=== PATIENT | female | born 1990 ===

== ENCOUNTER 2017-07-18 22:58 | Inpatient (IN) | payer SELFPAY ==
[2017-07-18] MEDS ORDERED: Nalbuphine 20 MG/1 ML Amp IVPUSH PRN (23:10)
[2017-07-18] MEDS ORDERED: Ondansetron 4 MG/2 ML SDV IVPUSH PRN (23:10)
[2017-07-18] MEDS ORDERED: Sodium Chloride 0.9% 10 ML Syringe FLUSH PRN (23:10)
[2017-07-18] MEDS ORDERED: Oxytocin/Lactated Ringers 10 UNIT/1,000 ML BAG IV ONE (23:12)
[2017-07-18] MEDS ORDERED: Lactated Ringers 1,000 ML IV SCH (23:15)
[2017-07-18] MEDS ORDERED: Lidocaine 1% 50 ML MDV INJECT SCH (23:15)
[2017-07-18] MEDS ORDERED: Oxytocin/Lactated Ringers 10 UNIT/1,000 ML BAG IV SCH (23:15)
--- NOTE | 2017-07-18 23:55 | PCM.LDHP ---
L&D History of Present Illness - General Date of Service: 07/18/17 Admit Problem/Dx: Patient Status Order with Admit Dx/Problem 07/18/17 23:10 Patient Status [ADT] Routine Admission Diagnosis/Problem Admission Diagnosis/Problem Source of Information: Patient History Limitations: Reports: No Limitations - History of Present Illness Introduction:: 27-year-old 001 CHRIS 07/08/17 or anyone 3 days estimated gestational age presented to labor and delivery at 7 cm dilated bulging bag of mata. B strep negative. The type O positive, antibody screen negative, hemoglobin hematocrit 11.8 and 35.3 on 02/11/17 platelets 188,000 negative Pap test immune rubella titer nonreactive serology mixed chuyita urine culture hepatitis B surface antigen and HIV were negative. TSH within normal limits diabetes OB glucose screen 04/10/17/06/09 on 04/10/17 hemoglobin hematocrit 10.8 and 32.5 platelets 167,000 repeat hemoglobin hematocrit on 06/05/1811.2/36.6 platelets 166,000 group B strep negative. Timing/Duration: Reports: minutes: Location, : Reports: Abdomen, Lower back Quality: Reports: Ache, Burning, Dull, Pressure Improves with: Reports: None Worsens with: Reports: None Associated Symptoms: Reports: N - Related Data Allergies/Adverse Reactions: Allergies Allergy/AdvReac Type Severity Reaction Status Date / Time No Known Allergies Allergy Verified 07/18/17 23:09 Past Medical History : 2 Para: 1 (1001) H&P Review of Systems - Review of Systems: Review Of Systems: See Below General: Reports: No Symptoms HEENT: Reports: No Symptoms Pulmonary: Reports: No Symptoms Cardiovascular: Reports: No Symptoms Gastrointestinal: Reports: No Symptoms Genitourinary: Reports: No Symptoms Musculoskeletal: Reports: No Symptoms Skin: Reports: No Symptoms Psychiatric: Reports: No Symptoms Neurological: Reports: No Symptoms Hematologic/Lymphatic: Reports: No Symptoms Immunologic: Reports: No Symptoms L&D Exam - Exam Exam: See Below - OB Specific Fundal Height In cm: 39 Contraction Duration (sec): 2 Contraction Frequency (min): 60 Contraction Intensity: Moderate to Strong Movement: Active Heart Tones: Present Heart Tones per Min: 130 Heart Rate (FHR) Variability: Moderate (6-25 bmp) Presentation: Right Occiput Anterior (PEREZ) - Fuentes Score Fuentes Score Cervix Position: Anterior Fuentes Score Consistency: Soft Fuentes Score Effacement: >80% Fuentes Score Dilation: > 5 cm Fuentes Score 's Station: -2 Fuentes Score Total: 11 - Exam General: Alert, Oriented HEENT: Conjunctiva Clear, Mucosa Moist & Harvey, PERRLA Neck: Supple, Trachea Midline Lungs: Clear to Auscultation, Normal Respiratory Effort Cardiovascular: Regular Rate, Regular Rhythm GI/Abdominal Exam: Normal Bowel Sounds, Soft, Non-Tender, No Distention Genitourinary: Normal external exam, Normal bimanual exam, Normal speculum exam Extremities: Normal Inspection, Normal Range of Motion, Non-Tender, No Pedal Edema, Normal Capillary Refill Skin: Warm, Dry, Intact Neurological: Cranial Nerves Intact, Reflexes Equal Bilateral Psychiatric: Alert, Normal Affect, Normal Mood - Patient Data Lab Results Last 24 hrs: Laboratory Results - last 24 hr 07/18/17 Range/Units 23:24 WBC 9.02 (3.98-10.04) K/mm3 RBC 4.59 (3.98-5.22) M/mm3 Hgb 13.6 (11.2-15.7) gm/L Hct 39.8 (34.1-44.9) % MCV 86.7 (79.4-94.8) fl MCH 29.6 (25.6-32.2) pg MCHC 34.2 (32.2-35.5) g/dl RDW Std Deviation 41.1 (36.4-46.3) fL Plt Count 170 L (182-369) K/mm3 MPV 10.0 (9.4-12.3) fl Neut % (Auto) 69.7 (34.0-71.1) % Lymph % (Auto) 20.8 (19.3-51.7) % [place] % (Auto) 9.1 (4.7-12.5) % Eos % (Auto) 0.1 L (0.7-5.8) Baso % (Auto) 0.1 (0.1-1.2) % Neut # (Auto) 6.28 H (1.56-6.13) K/mm3 Lymph # (Auto) 1.88 (1.18-3.74) K/mm3 [place] # (Auto) 0.82 H (0.24-0.36) K/mm3 Eos # (Auto) 0.01 L (0.04-0.36) K/mm3 Baso # (Auto) 0.01 (0.01-0.08) K/mm3 Result Diagrams: 07/18/17 23:24 - Problem List (1) 41 weeks gestation of SNOMED Code(s): 47644453 ICD Code: Z3A.41 - 41 WEEKS GESTATION OF Status: Acute Current Visit: Yes Problem List Initiated/Reviewed/Updated: No Orders Last 24hrs: Active Orders 24 hr Category Date Time Status Patient Status [ADT] Routine ADT 07/18/17 23:10 Active Activity as Tolerated [RC] PFP Care 07/18/17 23:10 Active Communication Order [RC] ASDIRECTED Care 07/18/17 23:10 Active Heart Tones [RC] ASDIRECTED Care 07/18/17 23:10 Active Notify Provider [RC] PFP Care 07/18/17 23:10 Active Notify Provider [RC] PRN Care 07/18/17 23:10 Active Peripheral IV Care [RC] . DIRECTED Care 07/18/17 23:10 Active Vital Signs [RC] PER UNIT ROUTINE Care 07/18/17 23:10 Active Lactated Ringers [Ringers, Lactated] 1,000 ml Med 07/18/17 23:15 Active IV ASDIRECTED Lidocaine 1% [Xylocaine 1%] Med 07/18/17 23:15 Active 50 ml INJECT .ONETIME Nalbuphine [Nubain] Med 07/18/17 23:10 Active 10 mg IVPUSH Q2H PRN Ondansetron [Zofran] Med 07/18/17 23:10 Active 4 mg IVPUSH Q4H PRN Oxytocin/Lactated Ringers [Pitocin in LR 10 Units/1,000 Med 07/18/17 23:15 Active ML] 10 unit in 1,000 ml IV .CONTINUOUS Sodium Chloride 0.9% [Saline Flush] Med 07/18/17 23:10 Active 10 ml FLUSH ASDIRECTED PRN Electronic Heart Tones Ext w TOCO [WOMSER] Oth 07/18/17 23:10 Ordered Routine Electronic Heart Tones Internal [WOMSER] Per Unit Oth 07/18/17 23:10 Ordered Routine Peripheral IV Insertion Adult [OM.PC] Routine Oth 07/18/17 23:10 Ordered Resuscitation Status Routine Resus Stat 07/18/17 23:10 Ordered Medication Orders Lactated Ringer's (Ringers, Lactated) 1,000 mls @ 100 mls/hr IV ASDIRECTED EYAD Oxytocin/Lactated Ringer's (Pitocin In Lr 10 Units/1,000 Ml) 10 unit in 1,000 mls @ 500 mls/hr IV .CONTINUOUS EYAD Lidocaine HCl (Xylocaine 1%) 50 ml INJECT .ONETIME EYAD Nalbuphine HCl (Nubain) 10 mg IVPUSH Q2H PRN PRN Reason: Pain (moderate 4-6) Ondansetron HCl (Zofran) 4 mg IVPUSH Q4H PRN PRN Reason: Nausea/Vomiting Sodium Chloride (Saline Flush) 10 ml FLUSH ASDIRECTED PRN PRN Reason: Keep Vein Open Assessment/Plan Comment:: Land delivery.
--- NOTE | 2017-07-19 00:15 | PCM.DEL ---
L & D Note - General Info Date of Service: 07/18/17 Mother's Due Date: 07/08/17 - Delivery Note Labor: Spontaneous Delivery Outcome: Livebirth (female liveborn OA, shoulder cord left, delivery at 2333 hours 07/18/17 APGARS 8/9) Delivery Method: Spontaneous Vaginal Delivery-Single Delivery Mode: Spontaneous Presentation: Right Occiput Anterior (PEREZ) Nuchal Cord: None (left shoulder cord) Prep: Povidone-Iodine (Betadine Anesthesia Type: Local Amniotic Fluid Description: Clear Episiotomy Type: None Laceration: 1st Degree (Midline) Suture type: Other (Monocryl) Suture size: 3-0 Placenta: Intact, Manual Removal (Velamentous insertion of the cord, cord tore away from placenta requiring manual removal of placenta. Placenta inspected intact.) Cord: 3 Vessels Estimated Blood Loss: 250 Resuscitation Needed: No Farner: Suctioned, Stimulated, Warmed, [place] Used, Warmer Used Provider: Jd Post Score 1 min: 8 Score 5 min: 9 - Patient Data Lab Results Last 24 Hours: Laboratory Results - last 24 hr 07/18/17 Range/Units 23:24 WBC 9.02 (3.98-10.04) K/mm3 RBC 4.59 (3.98-5.22) M/mm3 Hgb 13.6 (11.2-15.7) gm/L Hct 39.8 (34.1-44.9) % MCV 86.7 (79.4-94.8) fl MCH 29.6 (25.6-32.2) pg MCHC 34.2 (32.2-35.5) g/dl RDW Std Deviation 41.1 (36.4-46.3) fL Plt Count 170 L (182-369) K/mm3 MPV 10.0 (9.4-12.3) fl Neut % (Auto) 69.7 (34.0-71.1) % Lymph % (Auto) 20.8 (19.3-51.7) % [place] % (Auto) 9.1 (4.7-12.5) % Eos % (Auto) 0.1 L (0.7-5.8) Baso % (Auto) 0.1 (0.1-1.2) % Neut # (Auto) 6.28 H (1.56-6.13) K/mm3 Lymph # (Auto) 1.88 (1.18-3.74) K/mm3 [place] # (Auto) 0.82 H (0.24-0.36) K/mm3 Eos # (Auto) 0.01 L (0.04-0.36) K/mm3 Baso # (Auto) 0.01 (0.01-0.08) K/mm3 Med Orders - Current: Current Medications Lactated Ringer's (Ringers, Lactated) 1,000 mls @ 100 mls/hr IV ASDIRECTED EYAD Oxytocin/Lactated Ringer's (Pitocin In Lr 10 Units/1,000 Ml) 10 unit in 1,000 mls @ 500 mls/hr IV .CONTINUOUS EYAD Lidocaine HCl (Xylocaine 1%) 50 ml INJECT .ONETIME EYAD Nalbuphine HCl (Nubain) 10 mg IVPUSH Q2H PRN PRN Reason: Pain (moderate 4-6) Ondansetron HCl (Zofran) 4 mg IVPUSH Q4H PRN PRN Reason: Nausea/Vomiting Sodium Chloride (Saline Flush) 10 ml FLUSH ASDIRECTED PRN PRN Reason: Keep Vein Open Discontinued Medications Oxytocin/Lactated Ringer's (Pitocin In Lr 10 Units/1,000 Ml) Confirm Administered Dose 10 unit in 1,000 mls @ as directed IV .STK-MED ONE Stop: 07/18/17 23:13 - Problem List & Annotations (1) 41 weeks gestation of SNOMED Code(s): 99821581 Code(s): Z3A.41 - 41 WEEKS GESTATION OF Status: Acute Current Visit: Yes (2) Velamentous insertion of umbilical cord SNOMED Code(s): 22819755 Code(s): O43.129 - VELAMENTOUS INSERTION OF UMBILICAL CORD, UNSP TRIMESTER Status: Acute Current Visit: Yes (3) First degree perineal laceration during delivery SNOMED Code(s): 007972750 Code(s): O70.0 - FIRST DEGREE PERINEAL LACERATION DURING DELIVERY Status: Acute Current Visit: Yes (4) Precipitous delivery SNOMED Code(s): 615552759 Code(s): O62.3 - PRECIPITATE LABOR Status: Acute Current Visit: Yes - Problem List Review Problem List Initiated/Reviewed/Updated: No - My Orders Last 24 Hours: My Active Orders 07/18/17 23:10 Patient Status [ADT] Routine Activity as Tolerated [RC] PFP Communication Order [RC] ASDIRECTED Heart Tones [RC] ASDIRECTED Notify Provider [RC] PFP Notify Provider [RC] PRN Peripheral IV Care [RC] . DIRECTED Vital Signs [RC] PER UNIT ROUTINE Nalbuphine [Nubain] 10 mg IVPUSH Q2H PRN Ondansetron [Zofran] 4 mg IVPUSH Q4H PRN Sodium Chloride 0.9% [Saline Flush] 10 ml FLUSH ASDIRECTED PRN Electronic Heart Tones Ext w TOCO [WOMSER] Routine Electronic Heart Tones Internal [WOMSER] Per Unit Routine Peripheral IV Insertion Adult [OM.PC] Routine Resuscitation Status Routine 07/18/17 23:15 Lactated Ringers [Ringers, Lactated] 1,000 ml IV ASDIRECTED Lidocaine 1% [Xylocaine 1%] 50 ml INJECT .ONETIME Oxytocin/Lactated Ringers [Pitocin in LR 10 Units/1,000 ML] 10 unit in 1,000 ml IV .CONTINUOUS 07/18/17 23:55 Patient Status Manage Transfer [TRANSFER] Routine - Plan Plan:: Land delivery.
[2017-07-19] MEDS ORDERED: Acetaminophen 325 MG Tab PO PRN (00:41)
[2017-07-19] MEDS ORDERED: Benzocaine/Menthol 20%-0.5% Spray 56 GM Canister TOP PRN (00:41)
[2017-07-19] MEDS ORDERED: Lanolin 100% Cream 7 GM Tube TOP PRN (00:41)
[2017-07-19] MEDS ORDERED: Docusate Sodium 100 MG Cap PO PRN (00:41)
[2017-07-19] MEDS ORDERED: Witch Hazel Medicated Pads 100/Jar TOP PRN (00:41)
[2017-07-19] MEDS: Ibuprofen 600 MG Tab PO PRN ×2 (10:05→15:47)
--- NOTE | 2017-07-23 16:19 | PCM.DCSUM1 ---
Discharge Summary - Hospital Course Free Text/Narrative:: Dismissed at 24 hrs after delivery. [facility] LIVE L/D Delivery Note Patient Name: TONJA HURTADO Date of : 89 Patient Status: Inpatient Attending Provider: Jd Post Date: 07/19/17 00:04 Initialization Date: 07/19/17 00:04 L & D Note - General Info Date of Service: 07/18/17 Mother's Due Date: 07/08/17 - Delivery Note Labor: Spontaneous Delivery Outcome: Livebirth (female liveborn OA, shoulder cord left, delivery at 2333 hours 07/18/17 APGARS 8/9) Infant Delivery Method: Spontaneous Vaginal Delivery-Single Delivery Mode: Spontaneous Presentation: Right Occiput Anterior (PEREZ) Nuchal Cord: None (left shoulder cord) Prep: Povidone-Iodine (Betadine Anesthesia Type: Local Amniotic Fluid Description: Clear Episiotomy Type: None Laceration: 1st Degree (Midline) Suture type: Other (Monocryl) Suture size: 3-0 Placenta: Intact, Manual Removal (Velamentous insertion of the cord, cord tore away from placenta requiring manual removal of placenta. Placenta inspected intact.) Cord: 3 Vessels Estimated Blood Loss: 250 Resuscitation Needed: No : Suctioned, Stimulated, Warmed, Clothier Used, Warmer Used Provider: Jd Post Score 1 min: 8 Score 5 min: 9 - Patient Data Lab Results Last 24 Hours: Laboratory Results - last 24 hr 07/18/17 Range/Units 23:24 WBC 9.02 (3.98-10.04) K/mm3 RBC 4.59 (3.98-5.22) M/mm3 Hgb 13.6 (11.2-15.7) gm/L Hct 39.8 (34.1-44.9) % MCV 86.7 (79.4-94.8) fl MCH 29.6 (25.6-32.2) pg MCHC 34.2 (32.2-35.5) g/dl RDW Std Deviation 41.1 (36.4-46.3) fL Plt Count 170 L (182-369) K/mm3 MPV 10.0 (9.4-12.3) fl Neut % (Auto) 69.7 (34.0-71.1) % Lymph % (Auto) 20.8 (19.3-51.7) % [place] % (Auto) 9.1 (4.7-12.5) % Eos % (Auto) 0.1 L (0.7-5.8) Baso % (Auto) 0.1 (0.1-1.2) % Neut # (Auto) 6.28 H (1.56-6.13) K/mm3 Lymph # (Auto) 1.88 (1.18-3.74) K/mm3 [place] # (Auto) 0.82 H (0.24-0.36) K/mm3 Eos # (Auto) 0.01 L (0.04-0.36) K/mm3 Baso # (Auto) 0.01 (0.01-0.08) K/mm3 Med Orders - Current: Current Medications Lactated Ringer's (Ringers, Lactated) 1,000 mls @ 100 mls/hr IV ASDIRECTED EYAD Oxytocin/Lactated Ringer's (Pitocin In Lr 10 Units/1,000 Ml) 10 unit in 1,000 mls @ 500 mls/hr IV .CONTINUOUS EYAD Lidocaine HCl (Xylocaine 1%) 50 ml INJECT .ONETIME EAYD Nalbuphine HCl (Nubain) 10 mg IVPUSH Q2H PRN PRN Reason: Pain (moderate 4-6) Ondansetron HCl (Zofran) 4 mg IVPUSH Q4H PRN PRN Reason: Nausea/Vomiting Sodium Chloride (Saline Flush) 10 ml FLUSH ASDIRECTED PRN PRN Reason: Keep Vein Open Discontinued Medications Oxytocin/Lactated Ringer's (Pitocin In Lr 10 Units/1,000 Ml) Confirm Administered Dose 10 unit in 1,000 mls @ as directed IV .STK-MED ONE Stop: 07/18/17 23:13 - Problem List & Annotations (1) 41 weeks gestation of SNOMED Code(s): 27019808 Code(s): Z3A.41 - 41 WEEKS GESTATION OF Status: Acute Current Visit: Yes (2) Velamentous insertion of umbilical cord SNOMED Code(s): 67625611 Code(s): O43.129 - VELAMENTOUS INSERTION OF UMBILICAL CORD, UNSP TRIMESTER Status: Acute Current Visit: Yes (3) First degree perineal laceration during delivery SNOMED Code(s): 071730652 Code(s): O70.0 - FIRST DEGREE PERINEAL LACERATION DURING DELIVERY Status: Acute Current Visit: Yes (4) Precipitous delivery SNOMED Code(s): 273800827 Code(s): O62.3 - PRECIPITATE LABOR Status: Acute Current Visit: Yes - Problem List Review Problem List Initiated/Reviewed/Updated: No - My Orders Last 24 Hours: My Active Orders 07/18/17 23:10 Patient Status [ADT] Routine Activity as Tolerated [RC] PFP Communication Order [RC] ASDIRECTED Heart Tones [RC] ASDIRECTED Notify Provider [RC] PFP Notify Provider [RC] PRN Peripheral IV Care [RC] . DIRECTED Vital Signs [RC] PER UNIT ROUTINE Nalbuphine [Nubain] 10 mg IVPUSH Q2H PRN Ondansetron [Zofran] 4 mg IVPUSH Q4H PRN Sodium Chloride 0.9% [Saline Flush] 10 ml FLUSH ASDIRECTED PRN Electronic Heart Tones Ext w TOCO [WOMSER] Routine Electronic Heart Tones Internal [WOMSER] Per Unit Routine Peripheral IV Insertion Adult [OM.PC] Routine Resuscitation Status Routine 07/18/17 23:15 Lactated Ringers [Ringers, Lactated] 1,000 ml IV ASDIRECTED Lidocaine 1% [Xylocaine 1%] 50 ml INJECT .ONETIME Oxytocin/Lactated Ringers [Pitocin in LR 10 Units/1,000 ML] 10 unit in 1,000 ml IV .CONTINUOUS 07/18/17 23:55 Patient Status Manage Transfer [TRANSFER] Routine - Plan Plan:: Land delivery. HPI Initial Comments: Dismissed at 24 hrs after delivery. [facility] LIVE L/D Delivery Note Patient Name: TONJA HURTADO Date of : 89 Patient Status: Inpatient Attending Provider: Jd Post Date: 07/19/17 00:04 Initialization Date: 07/19/17 00:04 L & D Note - General Info Date of Service: 07/18/17 Mother's Due Date: 07/08/17 - Delivery Note Labor: Spontaneous Delivery Outcome: Livebirth (female liveborn OA, shoulder cord left, delivery at 2333 hours 07/18/17 APGARS 8/9) Delivery Method: Spontaneous Vaginal Delivery-Single Infant Delivery Mode: Spontaneous Presentation: Right Occiput Anterior (PEREZ) Nuchal Cord: None (left shoulder cord) Prep: Povidone-Iodine (Betadine Anesthesia Type: Local Amniotic Fluid Description: Clear Episiotomy Type: None Laceration: 1st Degree (Midline) Suture type: Other (Monocryl) Suture size: 3-0 Placenta: Intact, Manual Removal (Velamentous insertion of the cord, cord tore away from placenta requiring manual removal of placenta. Placenta inspected intact.) Cord: 3 Vessels Estimated Blood Loss: 250 Resuscitation Needed: No [place]: Suctioned, Stimulated, Warmed, Clothier Used, Warmer Used Provider: Jd Post Score 1 min: 8 Score 5 min: 9 - Patient Data Lab Results Last 24 Hours: Laboratory Results - last 24 hr 07/18/17 Range/Units 23:24 WBC 9.02 (3.98-10.04) K/mm3 RBC 4.59 (3.98-5.22) M/mm3 Hgb 13.6 (11.2-15.7) gm/L Hct 39.8 (34.1-44.9) % MCV 86.7 (79.4-94.8) fl MCH 29.6 (25.6-32.2) pg MCHC 34.2 (32.2-35.5) g/dl RDW Std Deviation 41.1 (36.4-46.3) fL Plt Count 170 L (182-369) K/mm3 MPV 10.0 (9.4-12.3) fl Neut % (Auto) 69.7 (34.0-71.1) % Lymph % (Auto) 20.8 (19.3-51.7) % [place] % (Auto) 9.1 (4.7-12.5) % Eos % (Auto) 0.1 L (0.7-5.8) Baso % (Auto) 0.1 (0.1-1.2) % Neut # (Auto) 6.28 H (1.56-6.13) K/mm3 Lymph # (Auto) 1.88 (1.18-3.74) K/mm3 [place] # (Auto) 0.82 H (0.24-0.36) K/mm3 Eos # (Auto) 0.01 L (0.04-0.36) K/mm3 Baso # (Auto) 0.01 (0.01-0.08) K/mm3 Med Orders - Current: Current Medications Lactated Ringer's (Ringers, Lactated) 1,000 mls @ 100 mls/hr IV ASDIRECTED EYAD Oxytocin/Lactated Ringer's (Pitocin In Lr 10 Units/1,000 Ml) 10 unit in 1,000 mls @ 500 mls/hr IV .CONTINUOUS EYAD Lidocaine HCl (Xylocaine 1%) 50 ml INJECT .ONETIME EYAD Nalbuphine HCl (Nubain) 10 mg IVPUSH Q2H PRN PRN Reason: Pain (moderate 4-6) Ondansetron HCl (Zofran) 4 mg IVPUSH Q4H PRN PRN Reason: Nausea/Vomiting Sodium Chloride (Saline Flush) 10 ml FLUSH ASDIRECTED PRN PRN Reason: Keep Vein Open Discontinued Medications Oxytocin/Lactated Ringer's (Pitocin In Lr 10 Units/1,000 Ml) Confirm Administered Dose 10 unit in 1,000 mls @ as directed IV .STK-MED ONE Stop: 07/18/17 23:13 - Problem List & Annotations (1) 41 weeks gestation of SNOMED Code(s): 81012658 Code(s): Z3A.41 - 41 WEEKS GESTATION OF Status: Acute Current Visit: Yes (2) Velamentous insertion of umbilical cord SNOMED Code(s): 82206342 Code(s): O43.129 - VELAMENTOUS INSERTION OF UMBILICAL CORD, UNSP TRIMESTER Status: Acute Current Visit: Yes (3) First degree perineal laceration during delivery SNOMED Code(s): 153811449 Code(s): O70.0 - FIRST DEGREE PERINEAL LACERATION DURING DELIVERY Status: Acute Current Visit: Yes (4) Precipitous delivery SNOMED Code(s): 023727816 Code(s): O62.3 - PRECIPITATE LABOR Status: Acute Current Visit: Yes - Problem List Review Problem List Initiated/Reviewed/Updated: No - My Orders Last 24 Hours: My Active Orders 07/18/17 23:10 Patient Status [ADT] Routine Activity as Tolerated [RC] PFP Communication Order [RC] ASDIRECTED Heart Tones [RC] ASDIRECTED Notify Provider [RC] PFP Notify Provider [RC] PRN Peripheral IV Care [RC] . DIRECTED Vital Signs [RC] PER UNIT ROUTINE Nalbuphine [Nubain] 10 mg IVPUSH Q2H PRN Ondansetron [Zofran] 4 mg IVPUSH Q4H PRN Sodium Chloride 0.9% [Saline Flush] 10 ml FLUSH ASDIRECTED PRN Electronic Heart Tones Ext w TOCO [WOMSER] Routine Electronic Heart Tones Internal [WOMSER] Per Unit Routine Peripheral IV Insertion Adult [OM.PC] Routine Resuscitation Status Routine 07/18/17 23:15 Lactated Ringers [Ringers, Lactated] 1,000 ml IV ASDIRECTED Lidocaine 1% [Xylocaine 1%] 50 ml INJECT .ONETIME Oxytocin/Lactated Ringers [Pitocin in LR 10 Units/1,000 ML] 10 unit in 1,000 ml IV .CONTINUOUS 07/18/17 23:55 Patient Status Manage Transfer [TRANSFER] Routine - Plan Plan:: Land delivery. Brief History: Dismissed at 24 hrs after delivery. [facility] LIVE . L/D Delivery Note. Patient Name: TONJA HURTADO edical Record Number: [id number]. Date of : 89Patient Status: Inpatient. Attending Provider: Jd Post Number: [id number]. Date: 07/19/17 00: 04Initialization Date: 07/19/17 00:04. L & D Note. - General Info. Date of Service: 07/18/17. Mother's Due Date: 07/08/17. - Delivery Note. Labor: Spontaneous. Delivery Outcome: Livebirth (female liveborn OA, shoulder cord left, delivery at 2333 hours day 07/18/17 APGARS 8/9). Infant Delivery Method: Spontaneous Vaginal Delivery-Single. Delivery Mode: Spontaneous. Presentation: Right Occiput Anterior (PEREZ). Nuchal Cord: None (left shoulder cord). Prep: Povidone-Iodine (Betadine. Anesthesia Type: Local. Amniotic Fluid Description: Clear. Episiotomy Type: None. Laceration: 1st Degree (Midline). Suture type: Other (Monocryl). Suture size: 3-0. Placenta: Intact, Manual Removal (Velamentous insertion of the cord, cord tore away from placenta requiring manual removal of placenta. Placenta inspected intact.). Cord: 3 Vessels. Estimated Blood Loss: 250. Resuscitation Needed: No. [place]: Suctioned, Stimulated, Warmed, Clothier Used, Warmer Used. Provider: Jd Post. Score 1 min: 8. Score 5 min : 9. - Patient Data. Lab Results Last 24 Hours: Laboratory Results - last 24 hr. 07/18/17Range/Units. 23:24. WBC 9.02 (3.98-10.04) K/mm3. RBC 4.59 (3.98 -5.22) M/mm3. Hgb 13.6 (11.2-15.7) gm/L. Hct 39.8 (34.1-44.9) %. MCV 86.7 (79.4-94.8) fl. MCH 29.6 (25.6-32.2) pg. MCHC 34.2 (32.2-35.5) g/dl. RDW Std Deviation 41.1 (36.4-46.3) fL. Plt Count 170 L (182-369) K/mm3. MPV 10.0 (9.4-12.3) fl. Neut % (Auto) 69.7 (34.0-71.1) %. Lymph % (Auto) 20.8 ( 19.3-51.7) %. [place] % (Auto) 9.1 (4.7-12.5) %. Eos % (Auto) 0.1 L (0.7-5.8). Baso % (Auto) 0.1 (0.1-1.2) %. Neut # (Auto) 6.28 H (1.56-6.13) K/mm3. Lymph # (Auto) 1.88 (1.18-3.74) K/mm3. [place] # (Auto) 0.82 H (0.24-0.36) K/ mm3. Eos # (Auto) 0.01 L (0.04-0.36) K/mm3. Baso # (Auto) 0.01 (0.01-0.08) K /mm3. Med Orders - Current: Current Medications. Lactated Ringer's (Ringers, Lactated) 1,000 mls @ 100 mls/hr IV ASDIRECTED EYAD. Oxytocin/Lactated Ringer' s (Pitocin In Lr 10 Units/1,000 Ml) 10 unit in 1,000 mls @ 500 mls/hr IV .CONTINUOUS EYAD. Lidocaine HCl (Xylocaine 1%) 50 ml INJECT .ONETIME EYAD. Nalbuphine HCl (Nubain) 10 mg IVPUSH Q2H PRN. PRN Reason: Pain (moderate 4-6) . Ondansetron HCl (Zofran) 4 mg IVPUSH Q4H PRN. PRN Reason: Nausea/Vomiting. Sodium Chloride (Saline Flush) 10 ml FLUSH ASDIRECTED PRN. PRN Reason: Keep Vein Open. Discontinued Medications. Oxytocin/Lactated Ringer's (Pitocin In Lr 10 Units/1,000 Ml) Confirm Administered Dose 10 unit in 1,000 mls @ as directed IV .STK-MED ONE. Stop: 07/18/17 23:13. - Problem List & Annotations. (1) 41 weeks gestation of . SNOMED Code(s): 26774614. Code(s): Z3A.41 - 41 WEEKS GESTATION OF Status: Acute Current Visit: Yes. (2) Velamentous insertion of umbilical cord. SNOMED Code(s): 79268147. Code(s) : O43.129 - VELAMENTOUS INSERTION OF UMBILICAL CORD, UNSP TRIMESTER Status: Acute Current Visit: Yes. (3) First degree perineal laceration during delivery. SNOMED Code(s): 297780092. Code(s): O70.0 - FIRST DEGREE PERINEAL LACERATION DURING DELIVERY Status: Acute Current Visit: Yes. (4) Precipitous delivery. SNOMED Code(s): 822537151. Code(s): O62.3 - PRECIPITATE LABOR Status: Acute Current Visit: Yes. - Problem List Review. Problem List Initiated/Reviewed/Updated: No. - My Orders. Last 24 Hours: My Active Orders. 07/18/17 23:10. Patient Status [ADT] Routine. Activity as Tolerated [ RC] PFP. Communication Order [RC] ASDIRECTED. Heart Tones [RC] ASDIRECTED. Notify Provider [RC] PFP. Notify Provider [RC] PRN. Peripheral IV Care [RC] . DIRECTED. Vital Signs [RC] PER UNIT ROUTINE. Nalbuphine [ Nubain] 10 mg IVPUSH Q2H PRN. Ondansetron [Zofran] 4 mg IVPUSH Q4H PRN. Sodium Chloride 0.9% [Saline Flush] 10 ml FLUSH ASDIRECTED PRN. Electronic Heart Tones Ext w TOCO [WOMSER] Routine. Electronic Heart Tones Internal [WOMSER] Per Unit Routine. Peripheral IV Insertion Adult [OM.PC] Routine. Resuscitation Status Routine. 07/18/17 23:15. Lactated Ringers [ Ringers, Lactated] 1,000 ml IV ASDIRECTED. Lidocaine 1% [Xylocaine 1%] 50 ml INJECT .ONETIME. Oxytocin/Lactated Ringers [Pitocin in LR 10 Units/1,000 ML] 10 unit in 1,000 ml IV .CONTINUOUS. 07/18/17 23:55. Patient Status Manage Transfer [TRANSFER] Routine. - Plan. Plan:: Land delivery. - Discharge Data Discharge Date: 07/23/17 Discharge Disposition: Home, Self-Care 01 Condition: Good - Discharge Diagnosis/Problem(s) (1) 41 weeks gestation of SNOMED Code(s): 59839815 ICD Code: Z3A.41 - 41 WEEKS GESTATION OF Status: Acute (2) Velamentous insertion of umbilical cord SNOMED Code(s): 40550872 ICD Code: O43.129 - VELAMENTOUS INSERTION OF UMBILICAL CORD, UNSP TRIMESTER Status: Acute Qualifiers: Trimester: third trimester Qualified Code(s): O43.123 - Velamentous insertion of umbilical cord, third trimester (3) First degree perineal laceration during delivery SNOMED Code(s): 836959465 ICD Code: O70.0 - FIRST DEGREE PERINEAL LACERATION DURING DELIVERY Status: Acute (4) Precipitous delivery SNOMED Code(s): 816667389 ICD Code: O62.3 - PRECIPITATE LABOR Status: Acute - Patient Summary/Data Complications: none Consults: none Hospital Course: uneventful - Patient Instructions Diet: Regular Diet as Tolerated Driving: Do Not Drive (x48 hrs) Showering/Bathing: May Shower Notify Provider of: Fever, Increased Pain, Swelling and Redness, Drainage, Nausea and/or Vomiting - Discharge Plan Home Medications: Home Meds Acetaminophen [Tylenol] 650 mg PO Q4H PRN tablet 07/19/17 [Rx] Benzocaine/Menthol [Dermoplast Pain Relief [place]] 1 spray TOP ASDIRECTED PRN #1 canister 07/19/17 [Rx] Docusate Sodium [Colace] 100 mg PO BID PRN cap 07/19/17 [Rx] Ibuprofen [IJD: Ibuprofen] 600 mg PO Q4H PRN tablet 07/19/17 [Rx] Lanolin [Lansinoh HPA] 1 applic TOP ASDIRECTED PRN #1 tube 07/19/17 [Rx] Patient Handouts: Home Care Instructions for Mom Referrals: Juan Main MD [Physician] - (2 weeks) - Discharge Summary/Plan Comment DC Time >30 min.: No - Patient Data Vitals - Most Recent: Last Vital Signs Temp 97.9 F 07/19/17 20:00 Pulse 69 07/19/17 21:39 Resp 16 07/19/17 21:39 BP 112/67 07/19/17 21:39 Pulse Ox 98 07/19/17 21:39 Weight - Most Recent: 164 lb Med Orders - Current: Current Medications Discontinued Medications Acetaminophen (Tylenol) 650 mg PO Q4H PRN PRN Reason: mild pain or fever Benzocaine/Menthol (Dermoplast Pain Relief [place]) 0 gm TOP ASDIRECTED PRN PRN Reason: Perineal Comfort Measure Docusate Sodium (Colace) 100 mg PO BID PRN PRN Reason: Constipation Emollient Ointment (Lansinoh Hpa) 0 gm TOP ASDIRECTED PRN PRN Reason: Sore Nipples Lactated Ringer's (Ringers, Lactated) 1,000 mls @ 100 mls/hr IV ASDIRECTED EYAD Oxytocin/Lactated Ringer's (Pitocin In Lr 10 Units/1,000 Ml) 10 unit in 1,000 mls @ 500 mls/hr IV .CONTINUOUS EYAD Last Admin: 07/18/17 23:40 Dose: 500 mls/hr Oxytocin/Lactated Ringer's (Pitocin In Lr 10 Units/1,000 Ml) Confirm Administered Dose 10 unit in 1,000 mls @ as directed IV .STK-MED ONE Stop: 07/18/17 23:13 Last Admin: 07/19/17 10:22 Dose: Not Given Ibuprofen (Motrin) 600 mg PO Q4H PRN PRN Reason: Mild pain or fever Last Admin: 07/19/17 15:47 Dose: 600 mg Lidocaine HCl (Xylocaine 1%) 50 ml INJECT .ONETIME EYAD Last Admin: 07/19/17 02:40 Dose: 50 ml Nalbuphine HCl (Nubain) 10 mg IVPUSH Q2H PRN PRN Reason: Pain (moderate 4-6) Ondansetron HCl (Zofran) 4 mg IVPUSH Q4H PRN PRN Reason: Nausea/Vomiting Sodium Chloride (Saline Flush) 10 ml FLUSH ASDIRECTED PRN PRN Reason: Keep Vein Open Marlee Garcia (Kade) 1 pad TOP ASDIRECTED PRN PRN Reason: Hemorrhoid pain *Q Meaningful Use (DIS) - VTE *Q VTE Criteria *Q: - Stroke *Q Stroke Criteria *Q: - AMI *Q AMI Criteria *Q:
== END 2017-07-20 00:15 | disposition home or self-care (01) | DRG 775 ==
LOC: JD.OBCHECK 22:58 → JD.OB 23:00 → JD.OBCHECK 23:15 → JD.OB 23:19 → OBSVTOIN 23:33 → JD.OB 07-19 00:01
PROVIDERS: ADMIT Obstetrics & Gynecology; ATTEND Obstetrics & Gynecology
PROC: 10E0XZZ Delivery of Products of Conception, External Approach (ICD-10-PCS; principal; 2017-07-18)
PROC: 0HQ9XZZ Repair Perineum Skin, External Approach (ICD-10-PCS; 2017-07-18)
DX: O48.0 Post-term pregnancy (principal); O70.0 First degree perineal laceration during delivery; O43.123 Velamentous insertion of umbilical cord, third trimester; O62.3 Precipitate labor; Z3A.41 41 weeks gestation of pregnancy; Z37.0 Single live birth
CPT/HCPCS: 36415; 59300; 59409; 85025; A9270-GY; J2590